=== PATIENT | male | born 1945 | race Caucasian/White ===

== ENCOUNTER → 2020-03-10 11:07 | Outpatient (CLI) | payer MEDICARE, SELFPAY ==
--- NOTE | 2020-03-10 | DI.US.S_ITS ---
PROCEDURE: US THYROID INDICATIONS: NONTOXIC SINGLE NODULE TECHNIQUE: Real-time scanning was performed of the thyroid gland, with image documentation. COMPARISON: None. FINDINGS: Right: Thyroid lobe measures 4.6 x 2.2 x 2.0 cm, and is homogeneous in echotexture. Subcentimeter nodule present. Left: Thyroid lobe measures 4.6 x 1.5 x 1.8 cm, and is homogenous in echotexture. Subcentimeter nodule present. Isthmus: 2.0 mm thick. Nodule number: 1 Location: Right mid Size: 2.0 x 1.9 x 1.6 cm. Composition: Solid Echogenicity: Markedly hypoechoic Shape: wider than tall. Margins: Irregular Echogenic foci: Peripheral calcification. Total points: 7 ACR TI-RADS category: Highly suspicious IMPRESSION: Highly suspicious mid right thyroid nodule. Recommend sonographically directed fine-needle aspiration. ACR TI-RADS definitions and recommendations: TI-RADS 1 (benign): 0 points. FNA not needed. TI-RADS 2 (not suspicious): 2 points. FNA not needed. TI-RADS 3 (mildly suspicious): 3 points. * FNA if 2.5 cm or larger, follow up if 1.5 cm or larger (at 1, 3, and 5 years). TI-RADS 4 (moderately suspicious): 4-6 points. * FNA if 1.5 cm or larger, follow up if 1 cm or larger (at 1, 2, 3, and 5 years). TI-RADS 5 (highly suspicious): 7 points or more. * FNA if 1 cm or larger, follow up if 0.5 cm or larger (every year for 5 years). Dictated by: Jerry WILEY Interpreted: Jeri Croft MD on 03/10/2020 at 13:20 Approved by: Jeri Croft M.D. on 03/10/2020 at 15:00
== END ==
PROVIDERS: PCP Family Medicine; Referring Provider Family Medicine; Visit Provider Family Medicine
DX: E04.1 Nontoxic single thyroid nodule (principal)
CPT/HCPCS: 76536

== ENCOUNTER → 2020-04-30 14:21 | Outpatient (CLI) | payer MEDICARE, SELFPAY ==
--- NOTE | 2020-04-30 | DI.RAD.S_ITS ---
PROCEDURE: XR LUMBAR SPINE 2-3V INDICATIONS: other specified TECHNIQUE: 3 views of the lumbar spine were acquired. COMPARISON: None. FINDINGS: Bones: No fracture. Multilevel degenerative endplate sclerosis and spurring. Diffuse facet arthropathy. Mild diffuse lumbar disc space narrowing. Grade 1 anterolisthesis of L5 on S1. Soft tissues: Calcifications projecting in the region of the left abdomen, possibly nephrolithiasis although technically nonspecific. Scattered vascular calcifications. IMPRESSION: Diffuse lumbar spondylosis and facet arthropathy Grade 1 anterolisthesis of L5 on S1. Dictated by: Simone Oliver M.D. on 04/30/2020 at 16:45 Approved by: Simone Oliver M.D. on 04/30/2020 at 16:48
--- NOTE | 2020-04-30 | DI.RAD.S_ITS ---
PROCEDURE: XR THORACIC SPINE 2V INDICATIONS: Other specified disorders of bone density and stru TECHNIQUE: 3 views of the thoracic spine were acquired. COMPARISON: None. FINDINGS: Bones: No fracture. Diffuse spondylosis and facet arthropathy. There is dextrocurvature of the visualized thoracic spine. Soft tissues: No paravertebral stripe thickening. IMPRESSION: Discogenic changes. No fracture identified Dictated by: Simone Oliver M.D. on 04/30/2020 at 16:49 Approved by: Simone Oliver M.D. on 04/30/2020 at 16:50
--- NOTE | 2020-04-30 | DI.RAD.S_ITS ---
PROCEDURE: XR CERVICAL SPINE 2V OR 3V INDICATIONS: Other specified disorders of bone density and stru TECHNIQUE: 4 view(s) of the cervical spine were acquired. COMPARISON: None. FINDINGS: Bones: No fracture. Moderate to severe diffuse cervical disc space narrowing. Straightening of the normal lordotic curvature. Multilevel degenerative endplate sclerosis and spurring. Diffuse facet arthropathy. Lateral curvature of the spine. Soft tissues: No prevertebral soft tissue swelling. IMPRESSION: Severe diffuse cervical spondylosis and facet arthropathy Dictated by: Simone Oliver M.D. on 04/30/2020 at 16:48 Approved by: Simone Oliver M.D. on 04/30/2020 at 16:49
== END ==
PROVIDERS: PCP Family Medicine; Referring Provider Family Medicine; Visit Provider Family Medicine
DX: M85.88 Other specified disorders of bone density and structure, other site (principal); M47.816 Spondylosis without myelopathy or radiculopathy, lumbar region; M43.17 Spondylolisthesis, lumbosacral region; M47.812 Spondylosis without myelopathy or radiculopathy, cervical region; M47.814 Spondylosis without myelopathy or radiculopathy, thoracic region
CPT/HCPCS: 72040; 72070; 72100; 77080

== ENCOUNTER → 2021-01-06 10:23 | Outpatient (CLI) | payer MEDICARE, SELFPAY ==
[2021-01-06 11:59] LABS: Alanine Aminotransferase 23 IU/L (<50); Albumin 3.9 g/dL (3.5-5.0); Albumin Globulin Ratio 1.3 (1.0-2.8); Alkaline Phosphatase 50 U/L (38-126); Aspartate Aminotransferase 30 IU/L (17-59); BUN Creatinine Ratio 26.8 (6-22); Bilirubin Total 0.6 mg/dL (0.2-1.3); Blood Urea Nitrogen 22 mg/dL (9-20); Calcium 9.6 mg/dL (8.4-10.2); Carbon Dioxide 32 mmol/L (22-32); Chloride 100 mmol/L (98-107); Estimated Glomerular Filt Rate > 60.0 mL/min (>60); Globulin 3.1 g/dL (1.7-4.1); Glucose 105 mg/dL (80-110); HEMOLYSIS < 15 (0-50); Potassium 4.4 mmol/L (3.4-5.1); Sodium 139 mmol/L (137-145)
[2021-01-06 12:28] LABS: Prostate Specific Antigen 0.693 ng/mL (0.10-4.00)
== END ==
PROVIDERS: PCP Family Medicine; Referring Provider Family Medicine; Visit Provider Family Medicine
DX: R35.1 Nocturia (principal); I10 Essential (primary) hypertension
CPT/HCPCS: 36415; 80053; 84153

== ENCOUNTER → 2024-10-24 08:06 | Outpatient (CLI) | payer MEDICARE, SELFPAY ==
[2024-10-24 19:34] LABS: Alanine Aminotransferase 31 IU/L (<50); Albumin 4.2 g/dL (3.5-5.0); Albumin Globulin Ratio 1.5 (1.0-2.8); Alkaline Phosphatase 62 U/L (38-126); Aspartate Aminotransferase 35 IU/L (17-59); BUN Creatinine Ratio 30.1 (6-22); Bilirubin Total 0.8 mg/dL (0.2-1.3); Blood Urea Nitrogen 25 mg/dL (9-20); Calcium 9.3 mg/dL (8.4-10.2); Carbon Dioxide 29 mmol/L (22-32); Chloride 100 mmol/L (98-107); Cholesterol 202 mg/dL (140-199); Estimated Glomerular Filt Rate > 60 mL/min (>60); Globulin 2.8 g/dL (1.7-4.1); Glucose 89 mg/dL (80-110); HDL Cholesterol 71 mg/dL (40-60); HEMOLYSIS < 15 (0-50); LDL Cholesterol Calculated 123 mg/dL (<100); Potassium 4.3 mmol/L (3.4-5.1); Sodium 135 mmol/L (137-145); Triglycerides 42 mg/dL (35-150)
== END ==
PROVIDERS: PCP Family Medicine; Referring Provider Family Medicine; Visit Provider Student in an Organized Health Care Education/Training Program
DX: I10 Essential (primary) hypertension (principal)
CPT/HCPCS: 80053; 80061

== ENCOUNTER → 2025-06-16 14:04 | Outpatient (CLI) | payer MEDICARE, SELFPAY ==
[2025-06-16 18:43] LABS: Add Manual Diff / Slide Review NO; Hematocrit 40.3 % (41-53); Hemoglobin 13.7 g/dL (13.5-17.5); Lymphocytes Absolute Auto 1000 /uL (1100-4500); Mean Corpuscular HGB Conc 34.0 % (30-36); Mean Corpuscular Hemoglobin 30.8 PG (26-34); Mean Corpuscular Volume 90.6 fL (80-100); Platelet Count 212 X10^3/uL (150-400)
[2025-06-16 18:55] LABS: Blood Urea Nitrogen 18 mg/dL (9-20); Calcium 9.3 mg/dL (8.4-10.2); Carbon Dioxide 30 mmol/L (22-32); Chloride 96 mmol/L (98-107); Estimated Glomerular Filt Rate > 60 mL/min (>60); Glucose 120 mg/dL (70-99); HEMOLYSIS 16 (0-50); Potassium 4.0 mmol/L (3.4-5.1); Sodium 135 mmol/L (137-145)
== END ==
PROVIDERS: PCP Family Medicine; Visit Provider Internal Medicine Interventional Cardiology
DX: I25.10 Atherosclerotic heart disease of native coronary artery without angina pectoris (principal); I25.83 Coronary atherosclerosis due to lipid rich plaque
CPT/HCPCS: 80048; 85025